=== PATIENT | male | born 1990 | race Caucasian/White ===

== ENCOUNTER 2019-07-28 18:11 | Emergency (ER) | payer SELFPAY ==
[2019-07-28 18:16] VITALS: BP 149/80; PULSE 73; RESP 16; TEMP 36.7; O2SAT 100
[2019-07-28 18:49] VITALS: O2SAT 99
--- NOTE | 2019-07-28 18:50 | ED.URI ---
HPI - URI/Sore Throat General Chief Complaint: Upper Respiratory Infection Stated Complaint: Sore Throat Time Seen by Provider: 07/28/19 18:19 Source: patient Mode of arrival: ambulatory Limitations: no limitations History of Present Illness HPI Narrative: Patient presents with CC of sore throat for 4 days. He also reports some mild cough and body aches. He denies any fevers. He denies any allergies to amoxicillin. Patient denies any recent international travel or cruise. Patient denies known exposure to Serg. 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 Related Data Allergies Allergy/AdvReac Type Severity Reaction Status Date / Time No Known Allergies Allergy Unknown Unverified 05/07/18 16:53 Review of Systems Review of Systems: Narrative: CONSTITUTIONAL: Reports intermittent body aches denies fever, chills, or sweats. EYES: Denies visual changes, redness, or discharge. ENT: reports sore throat denies rhinorrhea, congestion, or otalgia. CARDIOVASCULAR: Denies chest pain, palpitations, or edema. RESPIRATORY: Reports cough denies dyspnea. GASTROINTESTINAL: Denies abdominal pain, nausea, vomiting, or diarrhea. GENITOURINARY: Denies dysuria or hematuria. SKIN: Denies rash or itching. MUSCULOSKELETAL: Denies back pain, joint pain, or myalgia. NEUROLOGIC: Denies headache, numbness, dizziness, or weakness. PSYCHIATRIC: Denies anxiety or depression. Exam Narrative: Exam Narrative: GENERAL: Well-appearing, well-nourished, and in no acute distress. HEAD: Normocephalic, atraumatic. EYES: PERRLA and EOMI. ENT: Nares clear, no rhinorrhea or epistaxis. Mucous membranes moist. Oropharynx without tonsillar hypertrophy bilateral with erythema no exudate or other lesions. Bilateral TMs pearly [place] nonbulging. Large earrings noted to the patient bilateral ears. NECK: Supple. Bilateral tonsillar adenopathy mild. CHEST: Clear to auscultation. No respiratory distress. No wheezes rales or rhonchi HEART: Regular rate and rhythm. No murmur heard. Normal peripheral pulses. EXTREMITIES: Normal range of motion. No edema. SKIN: Warm, dry, no rash. NEURO: No focal deficits. Alert and oriented x3. PSYCH: Normal mood and affect. Course Vital Signs Vital signs: Vital Signs Temperature 98.1 F 07/28/19 18:16 Pulse Rate 73 07/28/19 18:16 Respiratory Rate 16 07/28/19 18:16 Blood Pressure 149/80 H 07/28/19 18:16 Pulse Oximetry 100 07/28/19 18:16 Temperature 98.1 F 07/28/19 18:16 Pulse Rate 73 07/28/19 18:16 Respiratory Rate 16 07/28/19 18:16 Blood Pressure 149/80 H 07/28/19 18:16 Pulse Oximetry 99 07/28/19 18:49 MDM - URI/Sore Throat MDM Narrative Medical decision making narrative: Treating patient clinically for pharyngitis. Patient has no uvula deviation or signs of peritonsillar abscess. Patient states he has had tonsillitis in the past with the same symptoms. Patient's strep will be sent for culture. Patient directed to follow-up with primary care for culture report. Patient instructed to return to emergency department if he develops any emergent symptoms. Lab Data Labs: Influenza A Screen Negative Reference Range: Negative Influenza B Screen Negative Reference Range: Negative Strep Screen Presumptive Negative *(Reference Range: Negative)* Discharge Plan Discharge Clinical Impression: Pharyngitis Qualifiers: Pharyngitis/tonsillitis etiology: streptococcus Qualified Code(s): J02.0 - Streptococcal pharyngitis Patient Disposition: Home, Self-Care Condition: Stable Instructions: Antibiotic Form, Strep Throat (ED) Additional Instructions: Take amoxicillin as directed. Take Tylenol and Motrin [id number] for discomfort. Rest and drink plenty of fluids. Follow-up with primary care for reevaluation if symptoms persist. Return to the emergency department if you have an
[2019-07-28 19:49] VITALS: BP 134/67; PULSE 76; RESP 16; TEMP 36.9; O2SAT 98
== END 2019-07-28 19:52 | disposition home or self-care (01) ==
PROVIDERS: Emergency Provider Family Medicine
DX: J02.0 Streptococcal pharyngitis (principal)
CPT/HCPCS: 87081; 87804; 87880; 99283

== ENCOUNTER 2020-07-12 14:36 | Emergency (ER) | payer BC, SELFPAY ==
[2020-07-12 14:53] VITALS: BP 139/80; PULSE 112; RESP 18; TEMP 36.5; O2SAT 96
--- NOTE | 2020-07-12 16:17 | ED.GENADULT ---
HPI - General Adult General Chief complaint: Upper Respiratory Infection <Lang Leal PA-C - Last Filed: 07/12/20 16:25> Stated complaint: sob <Lang Leal PA-C - Last Filed: 07/12/20 16:25> Time Seen by Provider: 07/12/20 15:55 <Lang Leal PA-C - Last Filed: 07/12/20 16:25> Source: patient <Lang Leal PA-C - Last Filed: 07/12/20 16:25> Mode of arrival: ambulatory <KAYY Bennett Last Filed: 07/12/20 16:25> Limitations: no limitations <Lang Leal PA-C - Last Filed: 07/12/20 16:25> History of Present Illness HPI narrative: Patient is a 29-year-old male who presents with multiple complaints consisting of pain to the left lower molar with history of decay patient also notes he has had sinus drainage and nonproductive cough for the last 3 to 4 days notes that he gets some shortness of breath patient denies fever sick contacts or other complaints presents in no distress and also notes history for tobacco abuse <Lang Leal PA-C - Last Filed: 07/12/20 16:25> Related Data Allergies/adverse reactions: Allergies Allergy/AdvReac Type Severity Reaction Status Date / Time No Known Allergies Allergy Unknown Verified 07/12/20 14:58 <Lang Leal PA-C - Last Filed: 07/12/20 16:25> Review of Systems Review of Systems: All systems reviewed & are unremarkable except as noted in HPI and below <Lang Leal PA-C - Last Filed: 07/12/20 16:25> [facility] Social History Social History: Social History (Updated 07/12/20 @ 16:21 by Lang Leal PA-C) Smoking status: Current every day smoker Gender identity (if verbalized by the patient): Male <Lang Leal PA-C - Last Filed: 07/12/20 16:25> Exam Narrative: Exam Narrative: GENERAL: Well-appearing, well-nourished, and in no acute distress. HEAD: Normocephalic, atraumatic. EYES: PERRLA and EOMI. ENT: Nares clear, no rhinorrhea or epistaxis. Mucous membranes moist. Oropharynx without tonsillar hypertrophy exudate or other lesions. Dental caries in the posterior left lower mouth no space-occupying lesions uvula midline no trismus or drooling NECK: Supple. No adenopathy or masses. CHEST: Clear to auscultation. No respiratory distress. No wheezes rales or rhonchi HEART: Regular rate and rhythm. No murmur heard. Normal peripheral pulses. ABDOMEN: Soft, nontender, nondistended EXTREMITIES: Normal range of motion. No edema. SKIN: Warm, dry, no rash. NEURO: No focal deficits. Alert and oriented x3. PSYCH: Normal mood and affect. <Lang Leal PA-C - Last Filed: 07/12/20 16:25> Course Course Emergency Course: Patient in the room in no distress aware of case findings treatment plan and diagnosis agreeing to follow-up as directed <Lang Leal PA-C - Last Filed: 07/12/20 16:25> Vital Signs Vital signs: Vital Signs Temperature 97.7 F 07/12/20 14:53 Pulse Rate 112 H 07/12/20 14:53 Respiratory Rate 18 07/12/20 14:53 Blood Pressure 139/80 07/12/20 14:53 Pulse Oximetry 96 07/12/20 14:53 Temperature 97.7 F 07/12/20 14:53 Pulse Rate 112 H 07/12/20 14:53 Respiratory Rate 18 07/12/20 14:53 Blood Pressure 139/80 07/12/20 14:53 Pulse Oximetry 96 07/12/20 14:53 <Lang Leal PA-C - Last Filed: 07/12/20 16:25> Vital Signs Temperature 97.7 F 07/12/20 14:53 Pulse Rate 112 H 07/12/20 14:53 Respiratory Rate 18 07/12/20 14:53 Blood Pressure 139/80 07/12/20 14:53 Pulse Oximetry 96 07/12/20 14:53 Temperature 97.7 F 07/12/20 14:53 Pulse Rate 112 H 07/12/20 14:53 Respiratory Rate 18 07/12/20 14:53 Blood Pressure 139/80 07/12/20 14:53 Pulse Oximetry 96 07/12/20 14:53 <Radha Villagran MD - Last Filed: 07/12/20 18:53> Medical Decision Making MDM Narrative Medical decision making narrative: Paitents pain and complaint coupled with physical findings are consistant with den
== END 2020-07-12 16:57 | disposition home or self-care (01) ==
PROVIDERS: Emergency Provider General Practice
DX: K08.89 Other specified disorders of teeth and supporting structures (principal); F17.200 Nicotine dependence, unspecified, uncomplicated
CPT/HCPCS: 99283

== ENCOUNTER 2022-04-13 21:14 | Emergency (ER) | payer BC, SELFPAY ==
--- NOTE | ~2022-04-13 | CT_ITS ---
EXAMINATION: CTA chest PE abdomen pel DATE: 04/13/2022 23:34 INDICATION: Chest and abdominal pain TECHNIQUE: Computed tomography angiography (CTA) of the chest was performed with 100 mL Omnipaque-350 intravenous contrast timed to evaluate the pulmonary arteries. Subsequent postcontrast images of the abdomen and pelvis are obtained. Coronal maximum intensity projection 3D-reconstructions were create d by the technologist. The dose-length product (DLP) was 534.66 mGy-cm. Automated exposure control an d iterative reconstruction technique were employed. COMPARISON: None. FINDINGS: CTA CHEST: The pulmonary arteries are well-opacified. No pulmonary embolism is identified. The lungs are free of acute opacities. No pleural effusion or pneumothorax. No pathologically enlarged thoracic lymph nodes are identified. The heart size is normal. There is a compression fracture of T8 with a c hronic appearance. ABDOMEN/PELVIS CT: The liver, spleen, pancreas, gallbladder, and adrenal glands are normal. The kidne ys are unremarkable. No pathologically enlarged abdominal or pelvic lymph nodes are identified. There is no free intraperitoneal gas or evidence of bowel obstruction. The appendix is normal. A moderate volume of colonic stool is present. There are bilateral L5 pars defects. IMPRESSION: 1. No pulmonary embolism or acute cardiopulmonary abnormality. 2. No acute abnormality of the abdomen or pelvis. Reviewed, dictated and finalized at location A. [employer]
--- NOTE | ~2022-04-13 | XR_ITS ---
EXAMINATION: XR chest 2V 04/13/2022 21:50 INDICATION: Shortness of breath and chest pain PROCEDURE: 2 view chest COMPARISON: 01/24/2028 FINDINGS: The lungs are clear. The cardiomediastinal silhouette is within normal limits. There are no pleural effusions. There is no pneumothorax suspected. IMPRESSION: 1: NO ACUTE CARDIOPULMONARY DISEASE. Reviewed, dictated and finalized at location A. ROOM ATTENDANT
--- NOTE | 2022-04-13 21:19 | ECG_ITS ---
Measurements Intervals [place] Rate: 70 P: 57 NH: 154 QRS: 75 QRSD: 94 T: 60 QT: 375 QTc: 405 Interpretive Statements SINUS RHYTHM NO PREVIOUS ECG AVAILABLE FOR COMPARISON Electronically Signed On 04-14-2022 10:21:51 [employer] by Mariam Conway M.D.
[2022-04-13 21:28] VITALS: BP 136/84; PULSE 102; RESP 18; TEMP 36.6; O2SAT 100
[2022-04-13 22:42] VITALS: PULSE 75
[2022-04-13 22:43] VITALS: BP 144/85; PULSE 85; RESP 12; O2SAT 99
[2022-04-13 22:48] LABS: Basophils Absolute Auto 0.1 K/mm3 (0.0-0.1); Basophils Percent Auto 0.5 % (0.2-1.2); Eosinophils Absolute Auto 0.7 K/mm3 (0-0.3); Eosinophils Percent Auto 5.7 % (0-4.4); Hematocrit 42.5 % (42.0-52.0); Hemoglobin 15.1 g/dL (14.0-18.0); Immature Granulocyte Absolute 0.04 K/mm3 (0.00-0.031); Immature Granulocyte Percent A 0.3 % (0-0.5); Lymphocytes Absolute Auto 2.81 K/mm3 (0.9-3.2); Lymphocytes Percent Auto 22.1 % (18.3-44.2); Mean Corpuscular HGB Conc 35.5 g/dl (32-36); Mean Corpuscular Hemoglobin 32.4 pg (26-34); Mean Corpuscular Volume 91.2 fl (80-100); Mean Platelet Volume 10.2 fl (7.4-10.4); Monocytes Absolute Auto 0.8 K/mm3 (0.1-0.6); Monocytes Percent Auto 6.5 % (2.6-8.5); Neutrophils Absolute Auto 8.3 K/mm3 (1.3-6.7); Neutrophils Percent Auto 64.9 % (45.5-73.1); Platelet Count Result 378 k/mm3 (150-375); Red Blood Count 4.66 M/mm3 (4.6-6.20); Red Cell Distribution Width 13.2 % (11.5-14.5); White Blood Count 12.7 K/mm3 (4.5-10.0)
[2022-04-13 22:58] LABS: INR 1.1; Partial Thromboplastin Time 30.4 SECONDS (22.3-36.8); Prothrombin Time 13.4 Seconds (11.1-14.7)
[2022-04-13 23:00] LABS: Alanine Aminotransferase 23 U/L (6-50); Albumin Level 4.6 g/dL (3.5-5.1); Alkaline Phosphatase 79 U/L (38-126); Anion Gap 8 mmol/L (8-16); Aspartate Amino Transferase 38 U/L (17-59); Bilirubin,Total 0.8 mg/dL (0.2-1.3); Blood Urea Nitrogen 9 mg/dL (9-20); Calcium 9.3 mg/dL (8.4-10.2); Carbon Dioxide 27 mmol/L (22-30); Chloride 104 mmol/L (98-107); Estimated CRCL calculation 103 ml/min; Estimated Glomerular Filt Rate > 60; Glucose 70 mg/dL (65-110); Lipase 83 U/L (23-300); Potassium 3.4 mmol/L (3.4-5.0); Sodium 139 mmol/L (137-145)
--- NOTE | 2022-04-13 23:17 | ED.CHESTPAIN ---
HPI - Chest Pain General Chief Complaint: Chest Pain Stated Complaint: chest pain Time Seen by Provider: 04/13/22 22:27 History of Present Illness HPI narrative: This is a 31-year-old male who denies past medical history, presenting the Emergency Department complaining of chest pain for the past 2 days. He describes pain as sharp, mild to moderate, substernal, intermittent, associated with palpitations and lightheadedness. He also complains of intermittent diffuse abdominal pain but denies fevers, chills, vomiting or diarrhea. Related Data Allergies Allergy/AdvReac Type Severity Reaction Status Date / Time No Known Allergies Allergy Unknown Verified 04/13/22 21:30 Review of Systems Review of Systems: CONSTITUTIONAL: Denies fever, chills, or sweats. EYES: Denies visual changes, redness, or discharge. ENT: Denies rhinorrhea, congestion, sore throat, or otalgia. CARDIOVASCULAR: Chest pain denies palpitations, or edema. RESPIRATORY: Denies cough or dyspnea. GASTROINTESTINAL: Abdominal pain denies nausea, vomiting, or diarrhea. GENITOURINARY: Denies dysuria or hematuria. SKIN: Diffuse hypopigmented lesions denies rash or itching. MUSCULOSKELETAL: Denies back pain, joint pain, or myalgia. NEUROLOGIC: Denies headache, numbness, dizziness, or weakness. PSYCHIATRIC: Denies anxiety or depression. [facility] Social History Social History Smoking status: Current every day smoker Gender identity (if verbalized by the patient): Male Exam Narrative: GENERAL: Well-developed, well-nourished, appears uncomfortable HEAD: Normocephalic, atraumatic. EYES: PERRLA and EOMI. ENT: Nares clear, no rhinorrhea or epistaxis. Mucous membranes moist. Oropharynx without tonsillar hypertrophy exudate or other lesions. NECK: Supple. No adenopathy or masses. No carotid bruits or JVD CHEST: Clear to auscultation. No respiratory distress. No wheezes rales or rhonchi HEART: Regular rate and rhythm. No murmur heard. Normal peripheral pulses. ABDOMEN: Soft, nontender, nondistended, normal active bowel sounds. EXTREMITIES: Normal range of motion. No edema. SKIN: Multiple healing lesions on the forearms and back, intermittent mildly tender nodules with small amount of hypopigmentation on the bilateral forearms; warm, dry, no rash. NEURO: No focal deficits. Alert and oriented x3. PSYCH: Normal mood and affect. Course Course Emergency Course: 00:35 - CBC demonstrates a white blood cell count of 12.7. Chemistries unremarkable with a negative troponin. CT PE protocol and abdomen pelvis read by stat rad. Impression: No pulmonary embolus, thoracic aortic dissection, pleural effusions, or consolidation. Bowel is nondilated. No free air, diverticulitis, or appendicitis. No hydronephrosis. No calcified gallstones or biliary dilatation. No CT evidence of acute pancreatitis. Incidental findings: Bilateral L5 pars defects. The patient notified nursing staff he wishes to sign out AMA after voicing inpatients. I was unable to review lab and imaging findings with the patient. At this time my suspicion for endocarditis is low. Vital Signs Vital signs: Vital Signs Temperature 97.8 F 04/13/22 21:28 Pulse Rate 102 H 04/13/22 21:28 Respiratory Rate 18 04/13/22 21:28 Blood Pressure 136/84 04/13/22 21:28 Pulse Oximetry 100 04/13/22 21:28 Temperature 97.8 F 04/13/22 21:28 Pulse Rate 80 04/13/22 23:39 Respiratory Rate 18 04/13/22 23:39 Blood Pressure 120/77 04/13/22 23:39 Pulse Oximetry 99 04/13/22 23:39 MDM - Chest Pain MDM Narrative Medical decision making narrative: Plan: Labs, imaging, EKG, troponin, pain control, reassess Differential Diagnosis Differential diagnosis: Likely atypical chest pain and other (Pneumonia, endocarditis, IV drug use, ACS, other) Lab Data 04/13/22 22:40 04/13/22 22:40 Labs: Lab Results 04/13/22 04/13/22
--- NOTE | 2022-04-13 23:23 | PC.NURSE ---
Pt to CT scan via stretcher at this time.
[2022-04-13 23:39] VITALS: BP 120/77; PULSE 80; RESP 18; O2SAT 99
[2022-04-14 00:27] LABS: Troponin I < 0.012 ng/mL (0.000-0.034)
--- NOTE | 2022-04-14 00:34 | PC.NURSE ---
Pt decided to leave AMA, refuses to sign paper work or allow for exit vitals, refused to wait to talk to EDP regarding results. Removed leads and ambulated out. Pt redirected to room to remove IV, pt removed himself and threw it on the bed.
== END 2022-04-14 00:36 | disposition left against medical advice (07) ==
PROVIDERS: Emergency Provider Preventive Medicine Aerospace Medicine
DX: R07.89 Other chest pain (principal); F17.200 Nicotine dependence, unspecified, uncomplicated
CPT/HCPCS: 36415; 71046; 71275; 74177; 80053; 83690; 84484; 85025; 85610; 85730; 93005; 96374; 99284; J0131; Q9967